=== PATIENT | female | born 1970 | race American Indian/Alaskan Native ===

== ENCOUNTER 2017-12-03 04:40 | Emergency (ER) | payer OTHER ==
[2017-12-03 05:01] VITALS: BMI 24.4
[2017-12-03 05:07] VITALS: RESP 18; TEMP 98.6
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
[2017-12-03 05:46] LABS: URINE BILIRUBIN NEGATIVE (NEGATIVE); URINE BLOOD NEGATIVE (NEGATIVE); URINE GLUCOSE (UA) NEGATIVE (NEGATIVE); URINE LEUKOCYTE ESTERASE TRACE Leu/uL (NEGATIVE); URINE NITRATE NEGATIVE (NEGATIVE); URINE PROTEIN NEGATIVE mg/dL (<30 mg/dL); URINE UROBILINOGEN 0.2 E.U./dL (<1 E.U./dL)
[2017-12-03 06:02] LABS: URINE APPEARANCE CLEAR (CLEAR); URINE COLOR YELLOW (YELLOW)
[2017-12-03 06:21] LABS: URINE EPITHELIAL CELLS 0 - 2 /hpf (0-5); URINE RBC 0 - 2 /hpf (0-2); URINE WBC 0 - 2 /hpf (0-6)
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
[2017-12-03 07:18] VITALS: BP 125/68; PULSE 75; O2SAT 99
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
== END 2017-12-03 07:19 | disposition home or self-care (01) ==
LOC: ED 04:40
DX: R07.9 Chest pain, unspecified (principal); S20.212A Contusion of left front wall of thorax, initial encounter; S80.01XA Contusion of right knee, initial encounter; Y08.89XA Assault by other specified means, initial encounter; Y92.89 Other specified places as the place of occurrence of the external cause; Y99.0 Civilian activity done for income or pay
CPT/HCPCS: 71250; 73562; 74176; 81001; 87086; 96372; 99282; J1885

== ENCOUNTER 2019-03-14 07:27 | Inpatient (IN) | payer OTHER ==
[2019-03-14 07:30] VITALS: BMI 26.1
[2019-03-14 08:12] LABS: BASO # 0.01 K/mm3 (0.0-2.0); BASO % 0.2 % (0.0-3.0); EOS # 0.1 (0.0-0.7); EOS % 2.1 % (1.5-5.0); HEMOGLOBIN 10.8 g/dL (12.0-16.0); LYMPH # 1.8 (1.2-3.4); LYMPH % 42.8 % (22.0-35.0); MEAN CORPUSCULAR HEMOGLOBIN 27.5 pg (25.0-35.0); MEAN PLATELET VOLUME 9.1 fl (7.0-11.0); MONO # 0.3 (0.1-0.6); MONO % 7.5 % (1.0-6.0); RBC 3.93 10^6/uL (3.5-6.1); WHITE BLOOD COUNT 4.3 10^3/uL (4.5-11.0)
[2019-03-14 08:14] LABS: INR 0.98; PARTIAL THROMBOPLASTIN TIME 29.7 Seconds (26.9-38.3); PROTHROMBIN TIME 11.1 SECONDS (9.4-12.5)
[2019-03-14 08:21] LABS: ALB/GLOB RATIO 1.4 (1.1-1.8); ALBUMIN 3.3 g/dL (3.0-4.8); ALT/SGPT 28 U/L (7-56); AST/SGOT 26 U/L (14-36); BLOOD UREA NITROGEN 19 mg/dL (7-21); CALCIUM 8.5 mg/dL (8.4-10.5); GFR NON-AFRICAN AMERICAN 53
[2019-03-14] MEDS ORDERED: Piperacill/Tazo 4.5gm in NS 4.5 GM/100 ML BAG IVPB STA (08:24)
[2019-03-14] MEDS ORDERED: Vancomycin 1gm in NS 250ml 1 GM/250 ML BAG IVPB STA (08:24)
[2019-03-14 08:32] LABS: TROPONIN I < 0.01 ng/mL
[2019-03-14 08:44] LABS: CK-MB 2.6 ng/mL (0.0-3.6)
--- NOTE | 2019-03-14 09:58 | CARD ---
APPROVED REPORT Date of service: 03/14/2019 EKG Measurement Heart [id number] <Conclusion> Normal sinus rhythm Prolonged QT Abnormal ECG
--- NOTE | 2019-03-14 10:01 | CT ---
Date of service: 03/14/2019 PROCEDURE: CT HEAD WITHOUT CONTRAST. HISTORY: altered mental status COMPARISON: None available. TECHNIQUE: Axial computed tomography images were obtained through the head/brain without intravenous contrast. Radiation dose: Total exam DLP = 874.19 mGy-cm. This CT exam was performed using one or more of the following dose reduction techniques: Automated exposure control, adjustment of the mA and/or kV according to patient size, and/or use of iterative reconstruction technique. FINDINGS: HEMORRHAGE: No intracranial hemorrhage. BRAIN: Physiologic calcification of the basal ganglia. No atrophy or chronic microvascular ischemic changes. VENTRICLES: Unremarkable. No hydrocephalus. CALVARIUM: Unremarkable. PARANASAL SINUSES: Unremarkable as visualized. No significant inflammatory changes. MASTOID AIR CELLS: Unremarkable as visualized. No inflammatory changes. OTHER FINDINGS: None. IMPRESSION: No acute intracranial findings
--- NOTE | 2019-03-14 10:17 | RAD ---
Date of service: 03/14/2019 HISTORY: Sepsis Patient COMPARISON: No prior. TECHNIQUE: 1 view obtained. FINDINGS: LUNGS: No active pulmonary disease. PLEURA: No significant pleural effusion identified, no pneumothorax apparent. CARDIOVASCULAR: No aortic atherosclerotic calcification present. Normal cardiac size. No pulmonary vascular congestion. OSSEOUS STRUCTURES: No significant abnormalities. VISUALIZED UPPER ABDOMEN: Normal. OTHER FINDINGS: None. IMPRESSION: No active disease.
[2019-03-14 10:42] LABS: OPIATES, UR NEGATIVE (NEGATIVE); PH,URINE 5.5 (4.7-8.0); PHENCYCLIDINE, UR NEGATIVE (NEGATIVE); URINE BILIRUBIN NEGATIVE (NEGATIVE); URINE BLOOD NEGATIVE (NEGATIVE); URINE GLUCOSE (UA) NEGATIVE (NEGATIVE); URINE LEUKOCYTE ESTERASE NEGATIVE Leu/uL (NEGATIVE); URINE PROTEIN NEGATIVE mg/dL (<30 mg/dL); URINE UROBILINOGEN 0.2 E.U./dL (<1 E.U./dL)
[2019-03-14 10:43] LABS: BARBITURATES, UR NEGATIVE (NEGATIVE); BENZODIAZEPINES, UR POSITIVE (NEGATIVE)
[2019-03-14 10:54] LABS: URINE APPEARANCE CLEAR (CLEAR); URINE COLOR YELLOW (YELLOW)
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
[2019-03-14 14:39] LABS: VENOUS BLOOD GAS BASE EXCESS -1.7 mmol/L (0.0-2.0); VENOUS BLOOD GAS PO2 26 mm/Hg (30-55); VENOUS BLOOD PH 7.31 (7.32-7.43)
[2019-03-14] MEDS ORDERED: Pneumococcal 23-Valent Vaccine IM ONE (17:28)
[2019-03-14 17:30] LABS: VENOUS BLOOD GAS BASE EXCESS 1.7 mmol/L (0.0-2.0); VENOUS BLOOD GAS PO2 118 mm/Hg (30-55); VENOUS BLOOD PH 7.41 (7.32-7.43)
[2019-03-14] MEDS: Albuterol 0.5% Inhal Sol (2.5 mg/0.5 ml) UD IH SCH ×2 (19:44)
[2019-03-14] MEDS: Insulin Reg-LOW-Coverage SC SCH (23:03)
[2019-03-14] MEDS: Temazepam [Restoril] 30 MG (HOME MED) PO SCH (23:04)
--- NOTE | 2019-03-15 00:47 | CON ---
DATE: 03/14/2019 CONSULT SERVICE: Cardiology. REASON FOR CONSULTATION AND FOLLOWUP: Admitted with altered mental status, status post syncope. BRIEF CLINICAL HISTORY: This is a 49-year-old female who claims that she [facility] with a history of diabetes and hypertension, brought by the ambulance because the patient was found to be on the floor, downstairs neighbor heard thump and went up and was found to be the patient on the floor. The patient says that she passed out. Denies any chest pain. Denies any shortness of breath. Denies any palpitation. PAST MEDICAL HISTORY: Significant for diabetes, hypertension, and hyperlipidemia. SOCIAL HISTORY: Denies any smoking. Denies any history of alcohol abuse. CURRENT MEDICATIONS: The patient is taking Restoril, Singulair, lisinopril, ibuprofen, Symbicort, atenolol, and albuterol inhaler. ALLERGIES: . PAST SURGICAL HISTORY: Denies any history of surgery. REVIEW OF SYSTEMS: As per HPI. PHYSICAL EXAMINATION: GENERAL: Height of the patient 5 feet 6 inches, weight of the patient 162 pounds, and body mass index 26.1 kg/m2. VITAL SIGNS: Temperature afebrile, heart rate 60, and blood pressure 108/70. HEENT: PERRLA. Extraocular muscles intact. NECK: Supple. No carotid bruits or thyromegaly. CHEST: Clear to auscultation. HEART: S1 and S2 regular. ABDOMEN: Soft. EXTREMITIES: Clubbing and cyanosis negative. LABORATORY DATA: Blood workup; WBC 4.8, hemoglobin 10.8, hematocrit 33.8, and platelet count 274. Chemistry; sodium 130, potassium 4, chloride 106, carbon dioxide 24, anion gap of 13, BUN 19, and creatinine 1.1. EKG showed normal sinus, no acute ST-T changes noted. IMPRESSION: A 49-year-old female with past medical history of chronic obstructive pulmonary disease, asthma, hypertension, hyperlipidemia, diabetes, and admitted after syncopal episode. Initially, the patient was hypotensive; responded with the fluids. RECOMMENDATIONS: Rule out orthostatic hypotension, echo to assess LV function, and hold antihypertensive medication. Lipid profile, TSH, and hemoglobin A1c. If remains stable, consider stress test tomorrow. So far troponin remains negative. It does not appear to be cardiac OK. We will follow with you. Thank you Dr. Long for providing us the opportunity in taking care of the patient, Edilma Rosario. Sean Randall MD
[2019-03-15 06:24] VITALS: O2SAT 95
[2019-03-15 07:20] LABS: BASO # 0.02 K/mm3 (0.0-2.0); BASO % 0.5 % (0.0-3.0); EOS # 0.1 (0.0-0.7); HEMOGLOBIN 11.1 g/dL (12.0-16.0); LYMPH # 1.9 (1.2-3.4); LYMPH % 47.6 % (22.0-35.0); MEAN CELL VOLUME 85.6 fl (80.0-105.0); MEAN CORPUSCULAR HEMOGLOBIN 27.5 pg (25.0-35.0); MEAN CORPUSCULAR HGB CONC 32.2 g/dl (31.0-37.0); MEAN PLATELET VOLUME 9.5 fl (7.0-11.0); MONO # 0.3 (0.1-0.6); MONO % 6.8 % (1.0-6.0); RBC 4.03 10^6/uL (3.5-6.1); RED CELL DISTRIBUTION WIDTH 14.8 % (11.5-14.5)
[2019-03-15 07:40] LABS: ALB/GLOB RATIO 1.3 (1.1-1.8); ALBUMIN 3.1 g/dL (3.0-4.8); ALT/SGPT 31 U/L (7-56); AST/SGOT 32 U/L (14-36); BLOOD UREA NITROGEN 10 mg/dL (7-21); CALCIUM 8.9 mg/dL (8.4-10.5); GFR NON-AFRICAN AMERICAN > 60; HDL CHOLESTEROL 54 mg/dL (29-60)
[2019-03-15 07:45] LABS: LDL CHOLESTEROL 69 mg/dL (0-129)
[2019-03-15] MEDS: Albuterol 0.5% Inhal Sol (2.5 mg/0.5 ml) UD IH SCH ×2 (07:49→19:27)
[2019-03-15] MEDS: Insulin Reg-LOW-Coverage SC SCH ×4 (08:12→23:07)
[2019-03-15] MEDS ORDERED: Aminophylline 25 mg/ml Inj ONE (08:15)
--- NOTE | 2019-03-15 12:29 | CARD ---
APPROVED REPORT Date of service: 03/15/2019 EXAM: Two-dimensional and M-mode echocardiogram with Doppler and color Doppler. INDICATION Chest Pain Syncope 2D DIMENSIONS Left Atrium (2D)3.4 (1.6-4.0cm)IVSd1.2 (0.7-1.1cm) LVDd3.9 (3.9-5.9cm)PWd1.3 (0.7-1.1cm) LVDs2.7 (2.5-4.0cm)FS (%) 31.6 % LVEF (%)60.1 (>50%) M-Mode DIMENSIONS Aortic Root1.90 (2.2-3.7cm)Aortic Cusp Exc.1.70 (1.5-2.0cm) Aortic Valve AoV Peak Yjincyoz405.0cm/Jeovany Peak GR.10mmHg Mitral Valve MV E Gvlsxqlv078.0cm/sMV A Dmghgswc35.5cm/sE/A ratio1.3 TDI E/Lateral E'0.0E/Medial E'0.0 Tricuspid Valve TR Peak Vktmanwp522jx/sRAP [id number] Peak Gr.18mmHg [id number] LEFT VENTRICLE The left ventricle is normal size. There is borderline to mild concentric left ventricular hypertrophy. Proximal septal thickening is noted. The left ventricular function is normal.EF-55-60% There is normal LV segmental wall motion. The left ventricular diastolic function is normal. No left ventricle thrombus noted on this study. There is no ventricular septal defect visualized. There is no left ventricular aneurysm. There is no mass noted in the left ventricle. RIGHT VENTRICLE The right ventricle is normal size. There is normal right ventricular wall thickness. The right ventricular systolic function is normal. ATRIA The left atrium size is normal. The right atrium size is normal. The interatrial septum is intact with no evidence for an atrial septal defect. AORTIC VALVE The aortic valve is thickened but opens well. No aortic regurgitation is present. There is no aortic valvular stenosis. There is no aortic valvular vegetation. MITRAL VALVE The mitral valve is thickened but opens well. Mitral regurgitation is trace. There is no mitral valve stenosis. There is no evidence of mitral valve prolapse. TRICUSPID VALVE The tricuspid valve leaflets are thickened , but open well. There is mild tricuspid regurgitation.RVSP-29 mmof hg,. There is no tricuspid valve stenosis. There is no tricuspid valve prolapse or vegetation. PULMONIC VALVE The pulmonary valve is normal in structure. There is no pulmonic valvular regurgitation. There is no pulmonic valvular stenosis. GREAT VESSELS The aortic root is normal in size. The ascending aorta is normal in size. The pulmonary artery is normal. The IVC is normal in size and collapses >50% with inspiration. PERICARDIAL EFFUSION There is no pleural effusion. Trivial PE. <Conclusion> Normal chamber Size. Ef-55-60%. Mitral regurgitation is trace. There is mild tricuspid regurgitation.RVSP-29 mmof hg,. The IVC is normal in size and collapses >50% with inspiration. Trivial PE.
--- NOTE | 2019-03-15 14:49 | PN ---
DATE: 03/15/2019 REASON FOR CONSULTATION AND FOLLOWUP: Admitted with altered mental status, status post syncope. Urine toxic screen is positive for cannabis versus marijuana, positive amphetamines and positive for benzodiazepine. SUBJECTIVE: The patient is much awake and alert. Denies any chest pain, shortness of breath or any palpitation. apparent distress. Could not answer why the patient was so sleepy yesterday. PHYSICAL EXAMINATION: VITAL SIGNS: Temperature afebrile, heart rate 80, and blood pressure 123/76. HEENT: PERRLA. Extraocular muscles intact. NECK: Supple. No carotid bruits or thyromegaly. CHEST: Clear to auscultation. HEART: S1 and S2 regular. ABDOMEN: Soft. EXTREMITIES: Clubbing and cyanosis negative. LABORATORY DATA: Blood workup as follows; WBC 4, hemoglobin 11, hematocrit 34.5, and platelet count 310. INR level within normal limit. Chemistry shows sodium 137, potassium 4, chloride 106, carbon dioxide 24, anion gap of 13, BUN 19, and creatinine 1.1. Troponin remains negative. TSH 0.49. Total cholesterol 131, triglycerides 62, LDL 69, HDL 54. Hemoglobin A1c pending. EKG showed normal sinus, no acute ST-T changes noted. 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 The patient's initial toxicity was positive for marijuana, cannabis, amphetamine, and benzodiazepine, most likely secondary to substance overdose, the patient had a syncopal episode. Yesterday, the patient is very weak, lethargic, and very somnolent, unable to given any history, but now awake and alert. History of pulmonary disease, history of asthma, hypertension, hyperlipidemia, diabetes. Given the multiple risk factor for coronary artery disease suggest echo and stress test. The patient agree, we will proceed for a stress test and echo today. Further recommendations after the stress test. We will follow with you. Further recommendation and hospital course. We will follow up with you after the initial workup. Further recommendation after the hospital course and finding of the initial workup. We will follow up with you. Awaiting for echo and a stress test to be done today. Thank you Dr. Long for providing us the opportunity in taking care of the patient, Abraham France. Sean Randall MD
--- NOTE | 2019-03-15 15:46 | CP.PCM.CON ---
History of Present Illness - History of Present Illness History of Present Illness: Neurology consult called by Dr. Mathew. Neurology consult dictated: #[id number] Patient with syncope and collapse who is now normal neurologically. Plan 1. CTA head and neck. Dr. ross Neurology Past Patient History - Infectious Disease Hx of Infectious Diseases: None - Tetanus Immunizations Tetanus Immunization: Unknown - Past Social History Smoking Status: Light Smoker < 10 Cigarettes Daily - CARDIAC Hx Hypertension: Yes - PULMONARY Hx Asthma: Yes - NEUROLOGICAL Hx Neurological Disorder: No - HEENT Hx HEENT Problems: No - RENAL Hx Chronic Kidney Disease: No - ENDOCRINE/METABOLIC Hx Diabetes Mellitus Type 2: Yes - HEMATOLOGICAL/ONCOLOGICAL Hx Blood Disorders: No - INTEGUMENTARY Hx Dermatological Problems: No - MUSCULOSKELETAL/RHEUMATOLOGICAL Hx Musculoskeletal Disorders: No - GASTROINTESTINAL Hx Gastrointestinal Disorders: No - GENITOURINARY/GYNECOLOGICAL Hx Genitourinary Disorders: No - PSYCHIATRIC Hx Anxiety: Yes Hx Depression: Yes Hx Emotional Abuse: No Hx Physical Abuse: No Hx Substance Use: No - SURGICAL HISTORY Hx Cholecystectomy: Yes (01/16/2014) Hx Gastric Bypass Surgery: Yes (2005) Other/Comment: endometriosis - ANESTHESIA Hx Anesthesia: Yes Hx Anesthesia Reactions: No Hx Malignant Hyperthermia: No Meds Allergies/Adverse Reactions: Allergies Allergy/AdvReac Type Severity Reaction Status Date / Time Sulfa (Sulfonamide Allergy ANAPHYLAXIS Verified 03/14/19 07:42 Antibiotics) flaxen Allergy Intermediate SHORTNESS Uncoded 03/14/19 07:42 OF BREATH - Medications Medications: Current Medications Albuterol Sulfate (Albuterol 0.5% Inhal Gloria (2.5 Mg/0.5 Ml) Ud) 2.5 mg IH BIDRESP [facility] Last Admin: 03/15/19 07:49 Dose: 2.5 mg Atenolol (Tenormin) 12.5 mg PO DAILY [facility] Last Admin: 03/15/19 13:31 Dose: 12.5 mg Duloxetine HCl (Cymbalta) 60 mg PO HS [facility] Last Admin: 03/14/19 23:03 Dose: 60 mg Escitalopram Oxalate (Lexapro) 20 mg PO HS [facility] Last Admin: 03/14/19 23:03 Dose: 20 mg Glipizide (Glucotrol) 10 mg PO 0730,1630 [facility] Last Admin: 03/15/19 08:12 Dose: Not Given Ibuprofen (Motrin Tab) 600 mg PO TID [facility] Last Admin: 03/15/19 13:33 Dose: Not Given Insulin Human Regular (Humulin R Low) 0 units SC ACHS [facility]; Protocol Last Admin: 03/15/19 13:27 Dose: Not Given Lisinopril (Zestril) 40 mg PO DAILY [facility] Last Admin: 03/15/19 13:31 Dose: 40 mg Montelukast Sodium (Singulair) 10 mg PO HS [facility] Temazepam [Restoril] (30 Mg (Home Med)) 30 mg PO HS [facility] Last Admin: 03/14/19 23:04 Dose: Not Given Results - Vital Signs Recent Vital Signs: Last Vital Signs Temp 98.2 F 03/15/19 12:00 Pulse 56 L 03/15/19 14:00 Resp 18 03/15/19 12:00 BP 126/73 03/15/19 13:31 Pulse Ox 95 03/15/19 06:00 - Labs Result Diagrams: 03/16/19 07:00 03/16/19 07:00 Labs: Laboratory Results - last 24 hr 03/14/19 03/14/19 03/14/19 17:07 17:10 21:16 WBC RBC Hgb Hct MCV MCH MCHC RDW Plt Count MPV Neut % (Auto) Lymph % (Auto) Angelina % (Auto) Eos % (Auto) Baso % (Auto) Lymph # (Auto) Angelina # (Auto) Eos # (Auto) Baso # (Auto) Absolute Neuts (auto) pO2 118 H VBG pH 7.41 VBG pCO2 42.0 VBG HCO3 26.6 VBG Total CO2 27.9 VBG O2 Sat (Calc) 98.2 H VBG Base Excess 1.7 VBG Potassium 4.0 Sodium 140.0 Chloride 112.0 H Glucose 89 Lactate 1.3 FiO2 21.0 Potassium Carbon Dioxide Anion Gap BUN Creatinine Est GFR ( Amer) Est GFR (Non-Af Amer) POC Glucose (mg/dL) 93 99 Random Glucose Hemoglobin A1c Calcium Phosphorus Magnesium Total Bilirubin AST ALT Alkaline Phosphatase Total Protein Albumin Globulin Albumin/Globulin Ratio Triglycerides Cholesterol LDL Cholesterol Direct HDL Cholesterol TSH 3rd Generation Venous Blood Potassium 4.0 Urine HCG, Qual 03/15/19 03/15/19 03/15/19 07:00 07:00 07:00 WBC 4.0 L RBC 4.03 Hgb 11.1 L Hct 34.5 L MCV 85.6 MCH 27.5 MCHC 32.2 RDW 14.8 H Plt Count 310 MPV 9.5 Neut % (Auto) 42.1 L Lymph % (Auto) 47.6 H Angelina % (Auto) 6.8 H Eos % (Auto) 3.0 Baso % (Auto) 0.5 Lymph # (Auto) 1.9 Angelina # (Auto) 0.3 Eos # (Auto) 0.1 Baso # (Auto) 0.02 Absolute Neuts (auto) 1.68 pO2 VBG pH VBG pCO2 VBG HCO3 VBG Total CO2 VBG O2 Sat (Calc) VBG Base Excess VBG Potassium Sodium 142 Chloride 109 H Glucose Lactate FiO2 Potassium 4.4 Carbon Dioxide 29 Anion Gap 9 L BUN 10 Creatinine 0.6 L Est GFR ( Amer) > 60 Est GFR (Non-Af Amer) > 60 POC Glucose (mg/dL) Random Glucose 84 Hemoglobin A1c 6.0 Calcium 8.9 Phosphorus 2.9 Magnesium 1.8 Total Bilirubin 0.3 AST 32 ALT 31 Alkaline Phosphatase 38 Total Protein 5.5 L Albumin 3.1 Globulin 2.4 Albumin/Globulin Ratio 1.3 Triglycerides 62 Cholesterol 131 LDL Cholesterol Direct 69 HDL Cholesterol 54 TSH 3rd Generation Venous Blood Potassium Urine HCG, Qual 03/15/19 03/15/19 03/15/19 07:00 07:36 11:36 WBC RBC Hgb Hct MCV MCH MCHC RDW Plt Count MPV Neut % (Auto) Lymph % (Auto) Angelina % (Auto) Eos % (Auto) Baso % (Auto) Lymph # (Auto) Angelina # (Auto) Eos # (Auto) Baso # (Auto) Absolute Neuts (auto) pO2 VBG pH VBG pCO2 VBG HCO3 VBG Total CO2 VBG O2 Sat (Calc) VBG Base Excess VBG Potassium Sodium Chloride Glucose Lactate FiO2 Potassium Carbon Dioxide Anion Gap BUN Creatinine Est GFR ( Amer) Est GFR (Non-Af Amer) POC Glucose (mg/dL) 85 94 Random Glucose Hemoglobin A1c Calcium Phosphorus Magnesium Total Bilirubin AST ALT Alkaline Phosphatase Total Protein Albumin Globulin Albumin/Globulin Ratio Triglycerides Cholesterol LDL Cholesterol Direct HDL Cholesterol TSH 3rd Generation 0.49 Venous Blood Potassium Urine HCG, Qual 03/15/19 14:35 WBC RBC Hgb Hct MCV MCH MCHC RDW Plt Count MPV Neut % (Auto) Lymph % (Auto) Angelina % (Auto) Eos % (Auto) Baso % (Auto) Lymph # (Auto) Angelina # (Auto) Eos # (Auto) Baso # (Auto) Absolute Neuts (auto) pO2 VBG pH VBG pCO2 VBG HCO3 VBG Total CO2 VBG O2 Sat (Calc) VBG Base Excess VBG Potassium Sodium Chloride Glucose Lactate FiO2 Potassium Carbon Dioxide Anion Gap BUN Creatinine Est GFR ( Amer) Est GFR (Non-Af Amer) POC Glucose (mg/dL) Random Glucose Hemoglobin A1c Calcium Phosphorus Magnesium Total Bilirubin AST ALT Alkaline Phosphatase Total Protein Albumin Globulin Albumin/Globulin Ratio Triglycerides Cholesterol LDL Cholesterol Direct HDL Cholesterol TSH 3rd Generation Venous Blood Potassium Urine HCG, Qual Negative
[2019-03-15] MEDS ORDERED: Iohexol 350 MG/100 ML VIAL ONE (16:01)
--- NOTE | 2019-03-15 17:20 | CT ---
Date of service: 03/15/2019 PROCEDURE: CT Angiography of the neck and head with contrast HISTORY: syncope COMPARISON: None. TECHNIQUE: Contiguous axial images of the neck and head were obtained from the level of the skull-base to the superior mediastinum in the arteriographic phase of enhancement. Coronal and sagittal reformats or also generated. IV contrast dose: 96 mL of Omnipaque 350 intravenously. Radiation dose: Total exam DLP = 563.52 mGy-cm. This CT exam was performed using one or more of the following dose reduction techniques: Automated exposure control, adjustment of the mA and/or kV according to patient size, and/or use of iterative reconstruction technique. FINDINGS: RIGHT CAROTID ARTERIES: Common Carotid Artery: Normal. Carotid Bifurcation: Normal. Internal Carotid Artery:Normal. External Carotid Artery (proximal branches): Normal. LEFT CAROTID ARTERIES: Common Carotid Artery: Normal. Carotid Bifurcation: Normal. Internal Carotid Artery:Normal. External Carotid Artery (proximal branches): Normal. VERTEBRAL ARTERIES: Right Vertebral Artery: Normal. Left Vertebral Artery: Normal. OTHER FINDINGS: no aortic atherosclerotic calcification or mural plaque present. IMPRESSION: No evidence of critical arterial stenosis or occlusion in the neck and head.
--- NOTE | 2019-03-15 22:06 | HP ---
DATE OF EXAM: 03/15/2019 The patient was seen and examined on 03/15/2019. CHIEF COMPLAINT: Syncopal attack. HISTORY OF PRESENT ILLNESS: Ms. Edilma Rosario is a 49-year-old female whose past medical history includes diabetes mellitus type 2, hypertension, hypercholesterolemia and history of gastric bypass, brought in by S, presented to the emergency department for syncopal attack. The patient was found by the downstairs neighbors who heard the thump and had gone upstairs to check on her. Neighbors thought that the patient did not have any pulse, called 911. Immediately afterwards upon arrival, BLS found the patient to have pulse; however, blood pressure was very low, brought the patient to the emergency room. In the emergency room, the patient was awake and alert. 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 She did not recall about anything. I saw her early in the morning, that moment looking fatigued and tired, otherwise comfortable. PAST MEDICAL HISTORY: Hypertension, asthma, diabetes mellitus type 2, anxiety, depression, cholecystectomy, gastric bypass surgery in 2005, endometriosis. FAMILY HISTORY: Father and mother noncontributory. HABITS: Light smoker, less than 10 cigarettes per day. No alcohol, no substance abuse. ALLERGIES: ALLERGIC WITH SULFA AND FLEXON ALLERGY. HOME MEDICATIONS: Reviewed by me Clarinex, Ventolin, Singulair, Tenormin, Symbicort, Cymbalta, Lexapro, Zestril, Restoril, Lyrica. REVIEW OF SYSTEMS: The patient was seen and examined at the bedside, looking comfortable that moment. No fever. No chills. No hematuria. No hematochezia. No headache. No dizziness. No chest pain. No palpitation. PHYSICAL EXAMINATION VITAL SIGNS: Temperature 98.3, pulse 59, blood pressure 132/81, respiratory rate 18. On admission, blood pressure was 74/40. HEENT: Head is normocephalic and atraumatic. Eyes PERRLA. Extraocular muscles intact. Conjunctiva clear. Nose patent. Mucous membranes moist. NECK: Supple, no carotid bruit or thyromegaly. CHEST: Bilaterally symmetrical. HEART: S1 and S2 positive. LUNGS: Clear to auscultation. ABDOMEN: Soft. Bowel sounds present. No organomegaly. EXTREMITIES: No edema, no cyanosis. NEUROLOGIC: The patient is awake and alert, moving all four extremities. No focal deficits. LABORATORY DATA: White blood cells 4, hemoglobin 11.1, hematocrit 34.5, platelets 310. Sodium 142, potassium 4.4, BUN 10, creatinine 0.6, glucose 84, hemoglobin A1c 6. ASSESSMENT AND PLAN: Ms. Edilma Rosario is 49 years old with leukopenia, anemia, hyperchloremia, drug screen positive with amphetamine, benzodiazepine, cannabinoid. Did CT scan of the head. Echocardiography done. Stress test done, the results are pending. A CT scan of the head and neck done also, no evidence of critical arterial stenosis or occlusion in the neck and head. Seen by neurologist, Dr. Viktoria Baca. The patient came with syncopal spell and now normal neurological examination. Seen by the surgery assistant. History of hypertension, hypercholesterolemia, depression, gastric bypass, chronic obstructive pulmonary disease, still smoking. Repeat labs. We will follow up. Kiana Long MD
--- NOTE | 2019-03-15 22:15 | CARD ---
APPROVED REPORT Date of service: 03/15/2019 Protocol: LEXISCAN Test Type: Lexiscan Sestamibi Stress Test Attending Physician: Dr. Sean Mcqueen Referring Physician: Dr. Kiana Long Test Indications: Syncope, Chest Pain Height:5 ft 6 in Weight:162lbs Medications: Albuterol, Atenolol, Cymbalta, Lexapro, Glipizide, Ibuprofen, Humulin, Zestril, Singulair Medical History: 49 y/o female. Hx of diabetes, asthma, hypertension, smoker, gastric bypass, anxiety. Target HR: 170 bpm Resting ECG: RSR Resting Heart Rate: 60 bpm Resting Blood Pressure: 120/70mmHg Submaximum (85%): 145 bpm PROCEDURE Pharmacologic stress testing was performed using 0.4mg per 5ml of regadenoson given intravenously over 7-10 seconds. POST EXERCISE Reason for Termination: Protocol completed Target HR: No Max HR: 74 bpm 60% of Maximum Predicted HR: 170 bpm Exercise duration: 00:35 min:sec, 0 Stage Exercise capacity: 1.0METs Max Blood Pressure: 120/70mmHg Blood Pressure response to exercise: normal resting BP - appropriate response Heart Rate response to exercise: appropriate Chest Pain: No, none Angina index: 0 Arrhythmia: No, none ST Change: No, none Deviation: 0 mm TEST SUMMARY [id number]. INFUSIONDOSE 100:[id number]/.0. [id number]. INTERPRETATION Stress EKG Conclusion: IV LEXISCAN NUCLEAR STRESS TEST NEGATIVE FOR CHEST PAIN AND NEGATIVE FOR ST-T CHANGES. NUCLEAR SCAN REPORT TO FOLLOW. Signed by Sean Mcqueen Electronically Approved: 03/15/2019 10:09:29 EXAM: Myocardial Perfusion STRESS/REST Stress Test Type: Pharmacologic Imaging Protocol The imaging protocol used to acquire images was Stress Tc-99m/rest Tc-99m 1 day Rest Spect myocardial perfusion imaging was performed in supine position 120 minutes following the injection of 30.2 mCi of Tc-99 Myoview. At peak stress, the patient was injected intravenously with 10.2mCi of Tc-99 tetrofosmin after an infusion time of 0 minutes and 10 seconds. Gated Stress Spect was performed 90 minutes after intravenous Tc-99 Myoview injection. The images were gated to evaluate regional wall motion and calculate ventricular ejection fraction.Images were reconstructed using backfilter projection method in short horizontal and verticle long axis. Spect slices were generated. LV Perfusion The quality of the study is good. The left ventricle is normal in size. The right ventricle is unremarkable. The lung uptake is within normal limits. The distribution of tracer reveals normal uptake pattern throughout the LV myocardium on the stress study. The rest myocardial perfusion study shows no significant change. Wall Motion Wall motion study shows good contractility of the left ventricle. LVEF = 65%. Conclusion 1. Normal SPECT myocardial perfusion study. 2. Normal gated wall motion of the left ventricle.
--- NOTE | 2019-03-15 22:17 | CON ---
DATE OF CONSULTATION: 03/15/2019 HISTORY OF PRESENT ILLNESS: In short, the patient is a 49-year-old female with multiple medical issues including diabetes and hypertension. The patient was brought in after syncopal episode. The patient was found unresponsive by her neighbor. The patient was admitted on the medical side. Psych consult was called for evaluation of possible depression. The patient has a history of depression and anxiety. The patient was seen and examined. The patient presented to be pleasant and cooperative. The patient's family, her sister and mother, are next to the patient. The patient wanted to be interviewed in front of the family. The patient reported that the reason for her fall was that she mixed her medications, which should not be mixed, for example the patient took her clonidine as well as Restoril, which prescribed by her psychiatrist. The patient reported that she was not depressed. She did not try to kill herself whatsoever, but the patient took medication altogether, and it caused her syncopal episode. The patient was indicated to be very cautious in regard of the medication and take it only as it was prescribed. The patient verbalized understanding. The patient denied being depressed, denied thoughts of harming herself or others, denied any psychotic symptoms. As this machine sign writer mentioned above, the patient is seen by Dr. Fly Jane in the community every 3 months, next appointment is going to be within next 6 weeks. The patient reported being compliant with the medications. The patient denied ever been admitted to the psychiatric inpatient unit. The patient denied history of hearing voices, denied seeing things, denied suicidal attempts. PHYSICAL EXAMINATION: VITAL SIGNS: Reviewed. MEDICATIONS: Reviewed. The patient is on Lexapro 20 mg daily and temazepam 30 mg at the nighttime. LABORATORY DATA: Labs reviewed. White blood cells low. Blood gas reviewed. Chemistry reviewed. Urinalysis reviewed. Toxicology was positive for amphetamines, benzodiazepines, and cannabis. This machine sign writer cannot exclude that the patient was using drugs, and that caused the patient's syncopal episode. MENTAL STATUS EXAMINATION: The patient presented to be alert and oriented, pleasant, socially appropriate. Mood described as okay. Affect was reactive. Mood congruent. Thought process was coherent and goal-directed. Thought content, the patient denied visual, auditory, or tactile hallucinations. Denied paranoid ideation. The patient denied thoughts of harming herself or others, denied intent or plan. Insight and judgment seemed to be fair. Impulses are well controlled. IMPRESSION: As per history, depression and anxiety, rule out polysubstance abuse and dependence. PLAN: The patient's family expressed no concerns about the patient's safety. The patient was educated to take medications as was prescribed. The patient verbalized understanding. The patient has followup appointment with Dr. Fly Jane within 6 weeks. The patient has enough medication at home. The patient poses no imminent danger to self or others. This machine sign writer will sign off. Should you have any questions give me a call back. Rebeca Bañuelos MD
[2019-03-15] MEDS: Temazepam [Restoril] 30 MG (HOME MED) PO SCH (23:07)
[2019-03-16 01:23] VITALS: BP 136/81; RESP 20; TEMP 98.1
[2019-03-16 07:27] LABS: HEMOGLOBIN 11.2 g/dL (12.0-16.0); MEAN CELL VOLUME 84.5 fl (80.0-105.0); MEAN CORPUSCULAR HEMOGLOBIN 27.6 pg (25.0-35.0); MEAN CORPUSCULAR HGB CONC 32.7 g/dl (31.0-37.0); MEAN PLATELET VOLUME 9.3 fl (7.0-11.0); RBC 4.06 10^6/uL (3.5-6.1); RED CELL DISTRIBUTION WIDTH 14.5 % (11.5-14.5); WHITE BLOOD COUNT 4.5 10^3/uL (4.5-11.0)
[2019-03-16] MEDS: Insulin Reg-LOW-Coverage SC SCH (07:30)
[2019-03-16 07:36] LABS: BLOOD UREA NITROGEN 8 mg/dL (7-21); CALCIUM 8.9 mg/dL (8.4-10.5); GFR NON-AFRICAN AMERICAN > 60; HDL CHOLESTEROL 62 mg/dL (29-60)
[2019-03-16] MEDS: Albuterol 0.5% Inhal Sol (2.5 mg/0.5 ml) UD IH SCH (07:44)
[2019-03-16 07:47] LABS: LDL CHOLESTEROL 81 mg/dL (0-129)
[2019-03-16 07:58] LABS: IRON 63 ug/dL (45-180)
[2019-03-16 08:12] LABS: % IRON SATURATION 14 % (20-55); TOTAL IRON BINDING CAPACITY 441 ug/dL (265-497)
[2019-03-16 12:10] LABS: FOLATE > 20.0 ng/mL
--- NOTE | 2019-03-16 12:39 | PN ---
DATE: 03/16/2019 REASON FOR CONSULTATION AND FOLLOWUP: Admitted with altered mental status, status post syncope. Urine toxic screen is positive for cannabis, marijuana, positive amphetamines, and positive for benzodiazepine. Negative stress test. Negative echo. SUBJECTIVE: Denies any chest pain, shortness of breath or any palpitation. PHYSICAL EXAMINATION: GENERAL: Not in apparent distress. Lying comfortable on the bed. VITAL SIGNS: Temperature afebrile, heart rate 60, and blood pressure 132/81. HEENT: PERRLA. Extraocular muscles intact. NECK: Supple. No carotid bruits or thyromegaly. CHEST: Clear to auscultation. HEART: S1 and S2, regular. ABDOMEN: Soft. EXTREMITIES: Clubbing and cyanosis negative. LABORATORY DATA: WBC 4.5, hemoglobin 10, hematocrit 34.3, and platelet count 319. Chemistry shows sodium 140, potassium 4.5, chloride 110, carbon dioxide 23, anion gap of 17, BUN 8, and creatinine 0.6. Troponin remains flat on admission. The patient underwent a stress test yesterday that shows a normal myocardial perfusion study, ejection fraction of 65%, negative stress test for ischemia. The patient underwent echocardiography also yesterday that revealed normal chamber size, ejection fraction 55% to 60%, trace aortic regurgitation, mild tricuspid regurgitation, RV systolic pressure 29, trivial pericardial effusion. RECOMMENDATION: Discontinue telemetry. Neuro workup is in progress. No evidence of acute arrhythmia in the telemetry. Most likely, this syncopal episode is secondary to overdose of substance. The patient since this morning is much awake and alert as if something happened, not sure what happened, but tox screen is positive. We will discontinue telemetry. Further recommendation as per Dr. Long. No further cardiac workup is planned or warranted. No evidence of arrhythmia. Sean Randall MD
[2019-03-16 13:16] VITALS: PULSE 57
--- NOTE | 2019-03-17 23:07 | CON ---
DATE: 03/15/2019 NEUROLOGY CONSULTATION REFERRING PHYSICIAN: Marianne Lee MD HISTORY OF PRESENT ILLNESS: Ms. Rosario is a 49-year-old woman who was admitted to [facility] and had a history of diabetes and hypertension. She was found to be on the floor. The patient's neighbor who heard a thump, went up and found the patient to be on the floor. When she was there, she was awake, alert and oriented x3. There was no foaming at the mouth. There were generalized tonic clonic seizures. There were no other issues. The patient had no weakness, no aphasia, no difficulty walking. On my examination, the patient does not recall what happened. Noted that she was diaphoretic and had palpitations, but she did not lose consciousness during this fall. This has never happened before. REVIEW OF SYSTEMS: Negative for headache, nausea, vomiting or diarrhea. PAST MEDICAL HISTORY: Diabetes, hypertension, hyperlipidemia. PAST SURGICAL HISTORY: No history of known surgeries. SOCIAL HISTORY: She lives with her family. There is no tobacco. There is no alcohol. The patient works as a nurse, working as an RN. CURRENT MEDICATIONS: Restoril, Singulair, lisinopril, ibuprofen, Symbicort, atenolol, and albuterol inhaler. The patient says that her hypertension has been out of control recently. ALLERGIES: NO KNOWN DRUG ALLERGIES. PHYSICAL EXAMINATION NEUROLOGIC: The patient is alert and oriented x3. Cranial nerves II through XII are normal. Pupils equally round and reactive to light. EOMI. Motor; tone is normal. Strength is 5/5. Sensory is intact fine touch, pin, position sense. Gait is normal. Cerebellar; [id number] shows no dysmetria. Reflexes are +2, upper and lower bilaterally. Toes are downgoing. There is no clonus. LABORATORY DATA: Within normal limits. Hemoglobin of 10.8, hematocrit 33.8. EKG showed normal sinus rhythm. No ST-T wave changes. IMPRESSION: A 49-year-old woman with a past medical history significant for medical issues. She had vasovagal syncope that was non-neurological in nature. A neurological examination is now normal. PLAN: A CT of the head and neck. An echocardiogram. The patient has a stress test on board for today. Thank you for this consult. Viktoria Baca MD [facility] # [id number]
== END 2019-03-16 12:02 | disposition home or self-care (01) | DRG 312 ==
LOC: ED 07:27 → ERH 11:08 → 2RNO 13:13
PROVIDERS: ADMIT Internal Medicine; ATTEND Internal Medicine
DX: R55 Syncope and collapse (principal); I95.9 Hypotension, unspecified; I10 Essential (primary) hypertension; E11.9 Type 2 diabetes mellitus without complications; F41.9 Anxiety disorder, unspecified; Z98.84 Bariatric surgery status; J44.9 Chronic obstructive pulmonary disease, unspecified; E78.00 Pure hypercholesterolemia, unspecified; E78.5 Hyperlipidemia, unspecified; F17.210 Nicotine dependence, cigarettes, uncomplicated; Z90.49 Acquired absence of other specified parts of digestive tract; I08.2 Rheumatic disorders of both aortic and tricuspid valves; F12.90 Cannabis use, unspecified, uncomplicated; F15.90 Other stimulant use, unspecified, uncomplicated